=== PATIENT | male | born 2000 | race Caucasian/White ===

== ENCOUNTER 2021-05-05 19:32 | Emergency (ER) | payer OTHER ==
[2021-05-05] MEDS ORDERED: CEPHALEXIN500 MG PO (21:45)
[2021-05-06] MEDS ORDERED: CEPHALEXIN500 MG PO (17:08)
== END 2021-05-05 22:09 | disposition home or self-care (01) ==
LOC: FER 19:32
DX: S51.812A Laceration without foreign body of left forearm, initial encounter (principal); I10 Essential (primary) hypertension; W26.8XXA Contact with other sharp object(s), not elsewhere classified, initial encounter; Y92.009 Unspecified place in unspecified non-institutional (private) residence as the place of occurrence of the external cause

== ENCOUNTER 2021-05-21 05:27 | Emergency (ER) | payer OTHER ==
[~2021-05-21 05:27] MED LIST: CEPHALEXIN500 MG PO
[2021-05-21 06:31] LABS: BASOPHIL 0.8 % (0-2); EOSINOPHIL 0.2 % (0-5); HGB 17.9 g/dl (13.2-18.0); LYMPHOCYTE 28.3 % (15-48); MCH 32.7 pg (25.0-31.0); MCHC 33.8 g/dL (32.0-36.0); MCV 96.7 fL (78.0-100.0); MPV 9.4 fL (6.0-9.5); NEUTROPHIL 65.5 % (41-80); NRBC 0; PLT 262 K/uL (150-400); RBC 5.48 M/uL (4.70-6.00); RDW 12.2 % (11.5-14.0); WBC 6.3 K/uL (4.0-10.5)
[2021-05-21 06:54] LABS: ALBUMIN 4.1 g/dL (3.4-5.0); ALKALINE PHOSHATASE 91 U/L (46-116); ALT 55 U/L (16-63); AST 26 U/L (15-37); BILIRUBIN - TOTAL 0.2 mg/dL (0.2-1.0); BUN 5 mg/dL (7-18); BUN/CREAT RATIO (CALC) 6.9 RATIO; CHLORIDE 108 mmol/L (98-107); CO2 (BICARBONATE) 24 mmol/L (21-32); CREATININE 0.72 mg/dL (0.67-1.17); GLOBULIN (CALCULATION) 3.4 g/dL; GLUCOSE 109 mg/dL (74-106); POTASSIUM 3.8 mmol/L (3.5-5.1); TOTAL PROTEIN 7.5 g/dL (6.4-8.2)
[2021-05-21 06:55] LABS: ACETAMINOPHEN (TYLENOL) < 2.0 ug/mL (10.0-30.0)
[2021-05-21 09:15] LABS: BILIRUBIN NEGATIVE (NEGATIVE); BLOOD NEGATIVE Ery/uL (NEGATIVE); CLARITY CLEAR (CLEAR); COLOR YELLOW (YELLOW); GLUCOSE (U) NORMAL (NORMAL); LEUKOCYTES NEGATIVE Leu/uL (NEGATIVE); NITRITE NEGATIVE (NEGATIVE); PROTEIN NEGATIVE (NEGATIVE); UROBILINOGEN 0.2 mg/dL (0.2-1.0)
[2021-05-21 09:29] LABS: MARIJUANA (THC) POSITIVE (NEGATIVE)
[2021-05-21 09:31] LABS: AMPHETAMINES NEGATIVE (NEGATIVE); BARBITURATES NEGATIVE (NEGATIVE); ECSTASY (MDMA) NEGATIVE (NEGATIVE); METHADONE NEGATIVE (NEGATIVE); OPIATES NEGATIVE (NEGATIVE)
[2021-05-21 09:32] LABS: OXYCODONE NEGATIVE (NEGATIVE)
== END 2021-05-21 17:03 ==
LOC: FER 05:27
PROVIDERS: Emergency Medicine Emergency Medical Services
DX: T43.212A Poisoning by selective serotonin and norepinephrine reuptake inhibitors, intentional self-harm, initial encounter (principal); T42.6X2A Poisoning by other antiepileptic and sedative-hypnotic drugs, intentional self-harm, initial encounter; T48.1X2A Poisoning by skeletal muscle relaxants [neuromuscular blocking agents], intentional self-harm, initial encounter; R53.83 Other fatigue; R47.81 Slurred speech; F17.210 Nicotine dependence, cigarettes, uncomplicated; Z20.822 Contact with and (suspected) exposure to COVID-19; Z88.5 Allergy status to narcotic agent; Y92.9 Unspecified place or not applicable
CPT/HCPCS: 36415; 80053; 80305; 81003; 85025; 93005; G0480; U0002

== ENCOUNTER 2021-06-14 22:33 | Emergency (ER) | payer OTHER ==
[2021-06-14 23:40] LABS: BASOPHIL 0.7 % (0-2); EOSINOPHIL 0.3 % (0-5); HCT 56.1 % (42.0-52.0); HGB 18.8 g/dl (13.2-18.0); LYMPHOCYTE 25.9 % (15-48); MCH 32.5 pg (25.0-31.0); MCHC 33.5 g/dL (32.0-36.0); MCV 97.1 fL (78.0-100.0); MONOCYTE 7.2 % (0-12); MPV 9.4 fL (6.0-9.5); NEUTROPHIL 65.5 % (41-80); NRBC 0; PLT 300 K/uL (150-400); RBC 5.78 M/uL (4.70-6.00); RDW 13.1 % (11.5-14.0); WBC 7.6 K/uL (4.0-10.5)
[2021-06-14 23:44] LABS: INR 1.03 (0.9-1.2); PROTHROMBIN TIME 12.9 SECONDS (11.8-13.4); PTT 25.6 SECONDS (24.4-34.7)
[2021-06-14 23:45] LABS: D-DIMER < 0.27 ug/mLFEU (0.00-0.41)
[2021-06-15 00:01] LABS: ALBUMIN 4.2 g/dL (3.4-5.0); BILIRUBIN - TOTAL 0.4 mg/dL (0.2-1.0); BUN/CREAT RATIO (CALC) 7.9 RATIO; CREATININE 0.76 mg/dL (0.67-1.17); FT4 (FREE T4) 0.8 ng/dL (0.76-1.46); GLOBULIN (CALCULATION) 3.8 g/dL; POTASSIUM 3.7 mmol/L (3.5-5.1)
[2021-06-15] MEDS ORDERED: ATIVAN0.5 MG PO (01:57)
[2021-06-15] MEDS ORDERED: PROTONIX 40MG T40 MG PO (01:57)
== END 2021-06-15 02:20 | disposition home or self-care (01) ==
LOC: FER 22:33
PROVIDERS: Emergency Medicine Emergency Medical Services
DX: R07.89 Other chest pain (principal); F41.9 Anxiety disorder, unspecified; I10 Essential (primary) hypertension; F17.200 Nicotine dependence, unspecified, uncomplicated
CPT/HCPCS: 36415; 71045; 80053; 83690; 84439; 84443; 84484; 85025; 85379; 85610; 85730; 87339; 93005; J1885; J2060; J7030